=== PATIENT | female | born 1950 | race Caucasian/White ===

== ENCOUNTER 2020-07-19 04:41 | Inpatient (IN) ==
[2020-07-19] MEDS ORDERED: Morphine 2 MG/ML SYRINGE IV PRN (05:30)
[2020-07-19 09:08] LABS: ABS Lymphocytes 0.6 10^3/ul (1.0-4.8); ABS Monocytes 0.5 10^3/ul (0-0.8); ABS Neutrophils 6.6 10^3/ul (1.5-7.7); Eosinophil % 0.1 %; Hematocrit 39 % (35-47); Hemoglobin 13.4 g/dL (12.0-16.0); Lymphocyte % 8.1 %; Mean Corpuscular HGB Conc 35 g/dL (31-36); Mean Corpuscular Hemoglobin 33 pg (27-31); Mean Corpuscular Volume 96 fL (80-97); Mean Platelet Volume 8.3 fL (7.4-10.4); Platelet Count 189 10^3/uL (150-450); Red Blood Count 4.03 10^6 /uL (3.70-4.87); Red Cell Distribution Width 13 % (10-15); White Blood Count 7.7 10^3/uL (3.5-10.8)
[2020-07-19 09:27] LABS: BUN/Creatinine Ratio 27.3 (8-20); Calcium 8.8 mg/dL (8.6-10.3); EGFR African American 106.8 (>60); EGFR Non-African American 88.3 (>60)
[2020-07-19 09:35] LABS: INR 1.01 (0.82-1.09)
[2020-07-19] MEDS ORDERED: fentaNYL 100 mcg/2 ml 50 MCG/ML VIAL ONE (12:12)
[2020-07-19] MEDS ORDERED: Propofol 10 MG/ML 20 ML BTL ONE (12:12)
[2020-07-19] MEDS ORDERED: Bupivacaine 0.5% SDV PF 30ML VIAL ONE (12:13)
[2020-07-19] MEDS ORDERED: ceFAZolin 2 GM PREMIX 2 GM/50 ML BAG ONE (12:23)
[2020-07-19] MEDS ORDERED: Midazolam 2 mg/2 ml VIAL 1 mg/ml 2 ml VIAL (2 mg) ONE (13:05)
[2020-07-19] MEDS ORDERED: EPHEDrine (Pressors) 50 MG/ML VIAL ONE (13:16)
[2020-07-19] MEDS ORDERED: Ondansetron 4 mg VIAL 2 MG/ML 2 ml VIAL IV PRN ×2 (13:19→16:28)
[2020-07-19] MEDS ORDERED: fentaNYL 100 mcg/2 ml 50 MCG/ML VIAL IV PRN (13:19)
[2020-07-19] MEDS ORDERED: Naloxone 0.4 mg VIAL 0.4 mg/ml 1 ml VIAL IV PRN (13:19)
[2020-07-19] MEDS ORDERED: HYDROmorphone 1 MG/1 ML SYRINGE IV PRN (13:19)
[2020-07-19] MEDS ORDERED: Vancomycin 1,000 MG VIAL ONE (13:55)
[2020-07-19] MEDS ORDERED: oxyCODONE/Acetamin 5/325 mg TAB PO PRN (16:27)
[2020-07-19] MEDS: ceFAZolin 1 GM X 3 DOSES POST-OP Q8H (AddVan) IVPB SCH (21:08)
[2020-07-19] MEDS: Morphine 2 MG/ML SYRINGE IV PRN (22:31)
[2020-07-20] MEDS: Morphine 2 MG/ML SYRINGE IV PRN (01:54)
[2020-07-20] MEDS: oxyCODONE/Acetamin 5/325 mg TAB PO PRN ×2 (03:32→08:11)
[2020-07-20] MEDS: ceFAZolin 1 GM X 3 DOSES POST-OP Q8H (AddVan) IVPB SCH ×2 (04:51→12:55)
[2020-07-20 05:32] LABS: ABS Lymphocytes 0.8 10^3/ul (1.0-4.8); ABS Neutrophils 5.7 10^3/ul (1.5-7.7); Eosinophil % 0.6 %; Hematocrit 35 % (35-47); Hemoglobin 11.9 g/dL (12.0-16.0); Lymphocyte % 10.7 %; Mean Corpuscular HGB Conc 35 g/dL (31-36); Mean Corpuscular Hemoglobin 33 pg (27-31); Mean Corpuscular Volume 97 fL (80-97); Mean Platelet Volume 8.8 fL (7.4-10.4); Platelet Count 158 10^3/uL (150-450); Red Blood Count 3.56 10^6 /uL (3.70-4.87); Red Cell Distribution Width 13 % (10-15); White Blood Count 7.6 10^3/uL (3.5-10.8)
[2020-07-20 05:39] LABS: INR 1.31 (0.82-1.09)
[2020-07-20 05:49] LABS: BUN/Creatinine Ratio 23.3 (8-20); Calcium 8.4 mg/dL (8.6-10.3); EGFR African American 119.2 (>60); EGFR Non-African American 98.5 (>60); Magnesium 1.8 mg/dL (1.9-2.7); Potassium 4.1 mmol/L (3.5-5.0)
[2020-07-20] MEDS ORDERED: Magnesium Sulfate 2 gm BAG 2 GM/50 ML BAG IVPB ONE (07:12)
[2020-07-20] MEDS ORDERED: NS 0.9% 1000 ml BAG 1,000 ML IV SCH (12:00)
[2020-07-21 06:04] LABS: ABS Eosinophils 0.1 10^3/ul (0-0.6); ABS Lymphocytes 0.7 10^3/ul (1.0-4.8); ABS Monocytes 0.8 10^3/ul (0-0.8); ABS Neutrophils 5.5 10^3/ul (1.5-7.7); Eosinophil % 1.8 %; Hematocrit 32 % (35-47); Lymphocyte % 10.3 %; Mean Corpuscular HGB Conc 35 g/dL (31-36); Mean Corpuscular Hemoglobin 34 pg (27-31); Mean Corpuscular Volume 98 fL (80-97); Mean Platelet Volume 8.8 fL (7.4-10.4); Platelet Count 151 10^3/uL (150-450); Red Blood Count 3.28 10^6 /uL (3.70-4.87); Red Cell Distribution Width 13 % (10-15); White Blood Count 7.3 10^3/uL (3.5-10.8)
[2020-07-21 06:17] LABS: INR 1.97 (0.82-1.09)
[2020-07-21 06:24] LABS: BUN/Creatinine Ratio 19.4 (8-20); Calcium 8.3 mg/dL (8.6-10.3); EGFR African American 114.8 (>60); EGFR Non-African American 94.9 (>60); Potassium 3.9 mmol/L (3.5-5.0)
[2020-07-22 06:05] LABS: INR 1.59 (0.82-1.09)
[2020-07-23] MEDS: Magnesium Hydroxide LIQ 30 ML UDC PO SCH ×2 (03:01→20:54)
[2020-07-23 06:36] LABS: INR 1.71 (0.82-1.09)
[2020-07-24 05:58] LABS: INR 2.51 (0.82-1.09)
[2020-07-24] MEDS: Magnesium Hydroxide LIQ 30 ML UDC PO SCH ×2 (07:17→21:20)
[2020-07-24 11:24] LABS: Hematocrit 33 % (35-47); Hemoglobin 11.1 g/dL (12.0-16.0)
[2020-07-24] MEDS ORDERED: Warfarin DAILY REMINDER **NOTE FOLLOW UP SCH (17:00)
[2020-07-25 07:57] LABS: Hematocrit 33 % (35-47); Hemoglobin 11.2 g/dL (12.0-16.0)
[2020-07-25] MEDS: Magnesium Hydroxide LIQ 30 ML UDC PO SCH (09:34)
[2020-07-25 10:31] LABS: INR 2.98 (0.82-1.09)
[2020-07-25 11:11] VITALS: BP 127/54
== END 2020-07-25 12:00 | disposition home health service (06) | DRG 522 ==
LOC: ED 04:41 → SSU 05:27
PROVIDERS: ADMIT Student in an Organized Health Care Education/Training Program; ATTEND Internal Medicine